=== PATIENT | female | born 2000 | race Caucasian/White ===

== ENCOUNTER 2022-05-16 14:18 | Emergency (ER) | payer BC ==
[~2022-05-16] VITALS: Ht 160 cm; Wt 113.6 kg
[2022-05-16 14:30] VITALS: TEMP 98.1
[2022-05-16 15:28] LABS: BASO % 0.4 % (0.0-2.0); EOS # 0.2 K/mm3 (0.0-0.7); EOS % 2.5 % (0.0-4.0); GRAN # 4.8 K/mm3 (1.4-6.5); GRAN % 69.7 % (42.2-75.2); HEMATOCRIT 43.1 % (37.0-47.0); LYMPH # 1.5 K/mm3 (1.2-3.4); LYMPH % 21.6 % (20.0-51.0); MEAN CELL VOLUME 86 fl (80.0-100.0); MEAN CORPUSCULAR HEMOGLOBIN 28 pg (27-31); MEAN CORPUSCULAR HGB CONC 33 g/dl (33.0-37.0); MEAN PLATELET VOLUME 9.4 fl (7.4-10.4); MONO # 0.4 K/mm3 (0.1-0.6); MONO % 5.7 % (1.7-9.3); PLATELET COUNT 210 K/mm3 (130-400); RED BLOOD COUNT 5.01 M/mm3 (4.10-5.30)
[2022-05-16 16:09] LABS: COLLECTION METHOD CLEAN CATCH
[2022-05-16 16:17] VITALS: BP 130/76; PULSE 89
[2022-05-16 16:40] LABS: MUCOUS Present (NOT PRESENT); PH 5.5 (5.0-8.5); URINE APPEARANCE Clear (CLEAR/HAZY); URINE BACTERIA Rare /hpf (NONE SEEN); URINE COLOR Yellow (YELLOW); URINE GLUCOSE Negative (NEGATIVE); URINE KETONE Negative (NEGATIVE); URINE PROTEIN(semi-quant) Negative (NEGATIVE)
[2022-05-16 16:41] LABS: URINE BLOOD 3+ (NEGATIVE); URINE NITRATE Negative (NEGATIVE); URINE UROBILINOGEN 0.2 E.U/dL (0.2-1.0)
== END 2022-05-16 16:18 | disposition home or self-care (01) ==
LOC: COL.ER 14:18
PROVIDERS: Nurse Practitioner
DX: O20.0 Threatened abortion (principal); Z28.310 Unvaccinated for COVID-19